=== PATIENT | female | born 2000 | race Two or more races ===

== ENCOUNTER 2019-05-18 14:45 | Inpatient (IN) | payer OTHER ==
[~2019-05-18] VITALS: Ht 172.7 cm; Wt 72.1 kg
[2019-05-22] MEDS ORDERED: OBSTETRIX DHA1 EACH PO (08:22)
== END 2019-05-23 09:52 | disposition home or self-care (01) | DRG 807 ==
LOC: LDR 05-21 05:22 → OB/GYN 05-21 05:22
PROVIDERS: ADMIT Obstetrics & Gynecology
PROC: 10E0XZZ Delivery of Products of Conception, External Approach (ICD-10-PCS; principal; 2019-05-21)
PROC: 3E033VJ Introduction of Other Hormone into Peripheral Vein, Percutaneous Approach (ICD-10-PCS; 2019-05-21)
PROC: 4A1HXCZ Monitoring of Products of Conception, Cardiac Rate, External Approach (ICD-10-PCS; 2019-05-21)
DX: O80 Encounter for full-term uncomplicated delivery (principal); Z37.0 Single live birth; Z3A.39 39 weeks gestation of pregnancy